=== PATIENT | male | born 1935 | race Caucasian/White ===

== ENCOUNTER 2017-11-25 19:59 | Inpatient (IN) | payer MEDICARE ==
[~2017-11-25] VITALS: Ht 154.7 cm; Wt 91.3 kg
[2017-11-25] MEDS ORDERED: ACETAMINOPHEN 325 MG TAB ONE (21:01)
[2017-11-25] MEDS ORDERED: ACETAMINOPHEN 325 MG TAB PO ONE (21:15)
[2017-11-25 21:22] LABS: BASOPHILS % 0.2 % (0.0-1.0); EOSINOPHILS # (AUTO) 0.1 (0.0-0.4); EOSINOPHILS % 0.6 % (0.0-6.0); HEMATOCRIT 40.4 % (38.2-49.6); HEMOGLOBIN 13.3 g/dL (14.0-18.0); LYMPHOCYTES # (AUTO) 0.5 (1.0-3.2); LYMPHOCYTES % 3.8 % (18.0-39.1); MEAN CORPUSCULAR HEMOGLOBIN 30.7 pg (28-32); MEAN CORPUSCULAR HGB CONC 32.9 g/dL (31-35); MEAN CORPUSCULAR VOLUME 93.3 fL (81-99); MONOCYTES # (AUTO) 0.5 (0.2-0.8); MONOCYTES % 3.1 % (4.4-11.3); NEUTROPHILS # (AUTO) 13.2 (2.1-6.9); NEUTROPHILS % 91.5 % (38.7-80.0); PLATELET COUNT 149 x10e3/uL (140-360); RED BLOOD COUNT 4.33 x10e6/uL (4.3-5.7); RED CELL DISTRIBUTION WIDTH 12.9 % (11.7-14.4)
[2017-11-25 21:33] LABS: ALBUMIN 3.7 g/dL (3.5-5.0); ALBUMIN/GLOBULIN RATIO 1.2 (0.8-2.0); ANION GAP 13.3 mmol/L (8-16); CALCIUM 10.5 mg/dL (8.4-10.2); CREATININE, SERUM 1.56 mg/dL (0.72-1.25); POTASSIUM 4.3 mmol/L (3.5-5.1)
--- NOTE | 2017-11-25 21:52 | Diagnostic Imaging Report ---
CHEST 2 VIEWS, Technique: CHEST 2 VIEWS Comparison: None Clinical history: Cough, fever DISCUSSION: Suboptimal positioning limits evaluation Heart/mediastinum: Borderline cardiomegaly status post sternotomy. Lungs: Elevated left hemidiaphragm. Mild bibasilar atelectasis or scarring. Pleural spaces: No effusion or pneumothorax. IMPRESSION: No acute abnormality Signed by: Dr Leona Mon MD on 11/25/2017 9:49 PM
[2017-11-26] MEDS ORDERED: IPRATROPIUM BROMIDE 0.02% 2.5 ML NEB NEB ONE (00:15)
[2017-11-26] MEDS ORDERED: LACTATED RINGER'S 1,000 ML IV ONE ×4 (00:15→12:00)
[2017-11-26] MEDS ORDERED: ALBUTEROL SULF 0.083% NEB SOLN 3 ML NEB NEB STA (00:15)
[2017-11-26 00:16] LABS: EOSINOPHILS % (MANUAL) 2 % (0-7); LYMPHOCYTES % (MANUAL) 3 % (19-48); MONOCYTES % (MANUAL) 3 % (3.4-9.0); NEUTROPHILS % (MANUAL) 92 % (40-74)
[2017-11-26 00:17] LABS: PLATELET ESTIMATE ADEQUATE
[2017-11-26 00:18] LABS: PLATELET MORPHOLOGY COMMENT NORMAL; POLYCHROMASIA FEW
[2017-11-26 00:31] LABS: BILIRUBIN,URINE NEGATIVE (NEGATIVE); CLARITY,URINE CLEAR (CLEAR); COLOR,URINE YELLOW (YELLOW); KETONES,URINE NEGATIVE (NEGATIVE); LEUKOCYTE ESTERASE ,URINE NEGATIVE (NEGATIVE); NITRITE,URINE NEGATIVE (NEGATIVE); PROTEIN,URINE DIPSTICK NEGATIVE (NEGATIVE); URINE UROBILINOGEN 0.2 mg/dL (0.2 - 1)
[2017-11-26 00:48] LABS: BACTERIA,URINE RARE /HPF; RBC,URINE 0-5 /HPF (0-5); WBC,URINE (MAN) 0-5 /HPF (0-5)
[2017-11-26 00:58] LABS: INR 0.98; PROTHROMBIN TIME 13.5 seconds (11.9-14.5)
[2017-11-26 01:04] LABS: MAGNESIUM 1.7 MG/DL (1.3-2.1)
[2017-11-26 01:10] LABS: CREATINE KINASE MB 1.6 ng/mL (0.00-5.00); TROPONIN I 0.062 ng/mL (0-0.300)
[2017-11-26 01:16] LABS: B-TYPE NATRIURETIC PEPTIDE2 47.2 pg/mL (0-100)
[2017-11-26] MEDS: AZITHROMYCIN 500MG/NS 250 ML 250 ML IV SCH ×2 (01:35→08:52)
[2017-11-26] MEDS: CEFTRIAXONE SOD 1 GM VIAL IV SCH ×2 (01:35→12:48)
[2017-11-26] MEDS ORDERED: VANCOMYCIN 1GM/NS 250 ML 250 ML IV STA (01:47)
[2017-11-26] MEDS ORDERED: ONDANSETRON HCL INJ 2 MG/ML VIAL IV PRN (02:00)
[2017-11-26] MEDS ORDERED: ASPIR 8181 MG PO (02:06)
[2017-11-26] MEDS ORDERED: CLOPIDOGREL75 MG PO (02:06)
[2017-11-26] MEDS ORDERED: HUMALOG100 UNIT/1 SC (02:06)
[2017-11-26] MEDS ORDERED: LEVOTHYROXINE50 MCG PO (02:06)
[2017-11-26] MEDS ORDERED: LANTUS 3ML100 UNITS/ SC (02:06)
[2017-11-26] MEDS ORDERED: DEXTROSE 50% SYRINGE 50 ML IV PRN (02:15)
[2017-11-26 03:01] VITALS: BP 113/57
[2017-11-26] MEDS: ACETAMINOPHEN 325 MG TAB PO PRN ×4 (03:38→23:05)
[2017-11-26 03:51] VITALS: BP 113/57
[2017-11-26] MEDS: INSULIN REGULAR, HUMAN 100 UNIT/1 ML 3ML VIAL SQ SCH ×4 (07:30→21:00)
[2017-11-26 07:41] VITALS: BP 107/60
[2017-11-26] MEDS: OSELTAMIVIR PHOSPHATE 75 MG CAP PO SCH ×2 (08:26→16:28)
[2017-11-26 11:28] VITALS: BP 87/52
[2017-11-26 11:32] LABS: CREATINE KINASE MB 2.4 ng/mL (0.00-5.00); TROPONIN I 0.275 ng/mL (0-0.300)
[2017-11-26] MEDS ORDERED: BREO INHALER (14:52)
[2017-11-26 15:48] VITALS: BP 149/72
[2017-11-26] MEDS ORDERED: INSULIN DETEMIR 100 UNIT/ML PEN SQ SCH (17:15)
[2017-11-26] MEDS ORDERED: FAMOTIDINE 20 MG TAB PO SCH (17:30)
[2017-11-26] MEDS: GUAIFENESIN 600MG/DEXTROMETHORPHAN 30MG TABSR PO SCH ×2 (18:04→23:05)
[2017-11-26] MEDS: ENOXAPARIN SOD INJ 40 MG/0.4 ML SYR SC SCH (18:04)
[2017-11-26 18:54] LABS: CREATINE KINASE MB 2.4 ng/mL (0.00-5.00); TROPONIN I 0.728 ng/mL (0-0.300)
[2017-11-26 20:00] VITALS: BP 119/66
[2017-11-26] MEDS: INSULIN DETEMIR 100 UNIT/ML PEN SQ SCH (22:37)
[2017-11-27] VITALS (7 sets, daily range): BP systolic 116–165; BP diastolic 56–75
[2017-11-27] MEDS: CEFTRIAXONE SOD 1 GM VIAL IV SCH ×2 (00:20→13:15)
[2017-11-27] MEDS: GUAIFENESIN 600MG/DEXTROMETHORPHAN 30MG TABSR PO SCH ×3 (06:10→17:24)
[2017-11-27] MEDS: LEVOTHYROXINE SODIUM 75 MCG TAB PO SCH (06:10)
[2017-11-27] MEDS: ALBUTEROL/IPRATROPIUM 3 ML NEB NEB SCH ×5 (07:00→23:10)
[2017-11-27 07:03] LABS: BASOPHILS % 0.2 % (0.0-1.0); EOSINOPHILS # (AUTO) 0.3 (0.0-0.4); EOSINOPHILS % 1.6 % (0.0-6.0); HEMATOCRIT 35.2 % (38.2-49.6); HEMOGLOBIN 11.5 g/dL (14.0-18.0); LYMPHOCYTES # (AUTO) 1.5 (1.0-3.2); LYMPHOCYTES % 9.3 % (18.0-39.1); MEAN CORPUSCULAR HEMOGLOBIN 31.1 pg (28-32); MEAN CORPUSCULAR HGB CONC 32.7 g/dL (31-35); MEAN CORPUSCULAR VOLUME 95.1 fL (81-99); MONOCYTES # (AUTO) 0.7 (0.2-0.8); MONOCYTES % 4.7 % (4.4-11.3); NEUTROPHILS # (AUTO) 13.2 (2.1-6.9); NEUTROPHILS % 83.1 % (38.7-80.0); PLATELET COUNT 131 x10e3/uL (140-360)
[2017-11-27 07:21] LABS: ALBUMIN 2.5 g/dL (3.5-5.0); ALBUMIN/GLOBULIN RATIO 0.9 (0.8-2.0); ANION GAP 6.9 mmol/L (8-16); CALCIUM 10.2 mg/dL (8.4-10.2); CHOL/HDL RATIO 3.1 (3.9-4.7); CREATININE, SERUM 1.22 mg/dL (0.72-1.25); POTASSIUM 3.9 mmol/L (3.5-5.1)
[2017-11-27] MEDS: INSULIN REGULAR, HUMAN 100 UNIT/1 ML 3ML VIAL SQ SCH ×4 (07:30→21:00)
[2017-11-27] MEDS: FAMOTIDINE 20 MG TAB PO SCH ×2 (08:30→16:24)
[2017-11-27] MEDS: ASPIRIN 81 MG CHEW TAB PO SCH (09:00)
[2017-11-27] MEDS: CLOPIDOGREL BISULFATE 75 MG TAB PO SCH (09:00)
[2017-11-27] MEDS: INSULIN DETEMIR 100 UNIT/ML PEN SQ SCH ×2 (09:00→21:00)
[2017-11-27] MEDS: OSELTAMIVIR PHOSPHATE 75 MG CAP PO SCH ×2 (09:00→17:00)
[2017-11-27] MEDS: AZITHROMYCIN 500MG/NS 250 ML 250 ML IV SCH (09:00)
--- NOTE | 2017-11-27 16:10 | History and Physical ---
PCP: Not a local doctor. CHIEF COMPLAINT: Fever and bronchitis. HISTORY OF PRESENT ILLNESS: Mr. Segura is an 82-year-old gentleman who presents with fever and chills with a temp as high as 102 at home times 2 days with a productive cough, shortness of breath, and wheezing. The patient does have a history of COPD, uses a nebulizer at home, quit smoking in the . REVIEW OF SYSTEMS: He has had subjective fever and chills. He denies weight loss. He denies sinus congestion, has had some sore throat. He denies chest pain or palpitations. He has had shortness of breath, wheezing, and a productive cough. He denies abdominal pain, nausea, vomiting, or melena. He denies dysuria or flank pain. He denies rash or pruritus. He denies joint pain or swelling. He denies bleeding or bruising. He denies headache, vertigo, or loss of consciousness. He denies depression, agitation, homicidal or suicidal ideation. PAST MEDICAL HISTORY: Significant for longstanding hypertension, type 2 diabetes, coronary artery disease, congestive heart failure, and COPD. He uses a nebulizer at home with albuterol and ipratropium. REGULAR MEDICATIONS 1. Lantus insulin 50 units at bedtime and sliding-scale insulin 3 times a day with meals. 2. Breo inhaler daily. 3. Aspirin 81 mg daily. 4. Plavix 75 mg daily. 5. Levothyroxine 50 mcg daily. He had a coronary artery bypass surgery in 2008. That is his only surgery. He quit smoking in 1979. DRUG ALLERGIES: NONE KNOWN. FAMILY HISTORY: Significant for hypertension and diabetes. SOCIAL HISTORY: The patient is . [place] is his primary language. He does not smoke, drink, or use illegal drugs, and he is generally independently functioning. PHYSICAL EXAM PSYCHIATRIC: He is alert and oriented times 3 with normal mood and affect. CONSTITUTIONAL: He has a normal body habitus. He is in no acute distress. VITAL SIGNS: Blood pressure currently 149/72, 107/60 on admission. His heart rate is 68 and regular. Respiratory rate 18. O2 sat 92% on 2 L nasal cannula. Temperature 99.8 currently. His temperature on admission was 101.9. HEENT: Head is atraumatic. His eyes are anicteric with clear conjunctivae. Ears and nares without erythema or discharge. Oropharynx is clear. NECK: Supple. No mass or thyromegaly. LYMPHATIC SYSTEM: He has no palpable cervical, axillary, or inguinal adenopathy. CARDIOVASCULAR: His heart has a regular rate and rhythm without murmur or extra sounds. He has no carotid bruit. No peripheral edema. Weak dorsal pedal pulses. RESPIRATORY: The patient has somewhat diminished breath sounds. He has inspiratory rhonchi, expiratory wheezing, and a productive cough and some mild shortness of breath. GASTROINTESTINAL: Abdomen is soft without organomegaly, masses, or tenderness. He has normal bowel sounds present. CUTANEOUS: His skin is warm and dry to touch. No rash or skin breakdown. MUSCULOSKELETAL: His joints are in normal alignment without erythema or swelling. He has no calf tenderness. NEUROLOGIC: Nonfocal with intact cranial nerves and no motor or sensory deficits. DIAGNOSTIC STUDIES: Chest x-ray shows no acute disease. His UA is clear. His flu screen was negative. Troponin 0.062, 0.275. His BNP 47.2, lactic acid 8.5. Magnesium is 1.7. Calcium 10.5. His electrolytes are normal. CO2 is 25. Creatinine 1.56. BUN 20 for a GFR of 43. Do not know what his baseline is. His glucose is 159. In view of the elevated calcium, the patient is most likely volume depleted at this time. His transaminases, bilirubin, alkaline phosphatase are normal. His CBC shows a white count of 14.3 which is elevated, 92% neutrophils, 3% lymphocytes, 3% monocytes, 2% eos. Hemoglobin 13.3, hematocrit 40.4, platelet count 149,000. Coags are normal. IMPRESSIONS 1. Severe sepsis. The patient meets criteria with elevated temperature, elevated white count, acute kidney injury, and bronchitis as the source. 2. Bronchitis/flu/acute exacerbation of chronic obstructive pulmonary disease. The patient will be started on oxygen with aggressive nebulizer treatments, intravenous Zithromax and Rocephin, p.o. Tamiflu and p.o. Mucinex. 3. Hypertension with coronary artery disease and congestive heart failure. Will continue the patient on aspirin, Plavix, and monitor his blood pressure. 4. Acute kidney injury. The patient has received intravenous fluids overnight. We will recheck his renal function and follow until we assess what his baseline is. 5. Type 2 diabetes. Will continue his Levemir and sliding scale. 6. For prophylaxis, the patient will be on Lovenox for deep venous thrombosis prophylaxis and Pepcid for gastrointestinal prophylaxis. Job#: [id number] CF
[2017-11-27] MEDS: LISINOPRIL 10 MG TAB PO SCH (16:20)
[2017-11-27] MEDS: ENOXAPARIN SOD INJ 40 MG/0.4 ML SYR SC SCH (17:00)
[2017-11-28] VITALS: BP 144/68
[2017-11-28] MEDS: CEFTRIAXONE SOD 1 GM VIAL IV SCH ×2 (01:10→13:15)
[2017-11-28] MEDS: ALBUTEROL/IPRATROPIUM 3 ML NEB NEB SCH ×4 (03:21→19:10)
[2017-11-28 04:00] VITALS: BP 155/73
[2017-11-28] MEDS: LEVOTHYROXINE SODIUM 75 MCG TAB PO SCH (06:00)
[2017-11-28] MEDS: GUAIFENESIN 600MG/DEXTROMETHORPHAN 30MG TABSR PO SCH ×4 (06:00→17:47)
[2017-11-28 07:19] LABS: BASOPHILS % 0.3 % (0.0-1.0); EOSINOPHILS # (AUTO) 0.3 (0.0-0.4); EOSINOPHILS % 2.9 % (0.0-6.0); HEMATOCRIT 32.6 % (38.2-49.6); HEMOGLOBIN 10.7 g/dL (14.0-18.0); LYMPHOCYTES # (AUTO) 0.9 (1.0-3.2); LYMPHOCYTES % 8.9 % (18.0-39.1); MEAN CORPUSCULAR HEMOGLOBIN 30.9 pg (28-32); MEAN CORPUSCULAR HGB CONC 32.8 g/dL (31-35); MEAN CORPUSCULAR VOLUME 94.2 fL (81-99); MONOCYTES # (AUTO) 0.5 (0.2-0.8); MONOCYTES % 4.8 % (4.4-11.3); NEUTROPHILS # (AUTO) 8.3 (2.1-6.9); NEUTROPHILS % 82.4 % (38.7-80.0); PLATELET COUNT 144 x10e3/uL (140-360); RED BLOOD COUNT 3.46 x10e6/uL (4.3-5.7); RED CELL DISTRIBUTION WIDTH 12.9 % (11.7-14.4)
[2017-11-28] MEDS: INSULIN REGULAR, HUMAN 100 UNIT/1 ML 3ML VIAL SQ SCH ×4 (07:30→21:00)
[2017-11-28 07:43] LABS: ANION GAP 9.9 mmol/L (8-16); CALCIUM 10.2 mg/dL (8.4-10.2); CREATININE, SERUM 1.47 mg/dL (0.72-1.25); POTASSIUM 3.9 mmol/L (3.5-5.1)
[2017-11-28 08:00] VITALS: BP 155/77
[2017-11-28] MEDS: FAMOTIDINE 20 MG TAB PO SCH ×2 (08:00→16:30)
[2017-11-28] MEDS: LISINOPRIL 10 MG TAB PO SCH (08:30)
[2017-11-28] MEDS: CLOPIDOGREL BISULFATE 75 MG TAB PO SCH (08:30)
[2017-11-28] MEDS: AZITHROMYCIN 500MG/NS 250 ML 250 ML IV SCH (08:30)
[2017-11-28] MEDS: OSELTAMIVIR PHOSPHATE 75 MG CAP PO SCH ×2 (08:30→17:00)
[2017-11-28] MEDS: ASPIRIN 81 MG CHEW TAB PO SCH (08:30)
[2017-11-28] MEDS: INSULIN DETEMIR 100 UNIT/ML PEN SQ SCH ×2 (09:00→21:00)
[2017-11-28] MEDS ORDERED: AMLODIPINE BESYLATE 5 MG TAB PO SCH (09:00)
[2017-11-28] MEDS: SODIUM CHLORIDE 0.9% 1000ML 1,000 ML IV SCH ×2 (11:30→22:06)
[2017-11-28] MEDS: AMLODIPINE BESYLATE 5 MG TAB PO SCH (12:41)
[2017-11-28 16:03] VITALS: BP 130/64
[2017-11-28] MEDS: ENOXAPARIN SOD INJ 40 MG/0.4 ML SYR SC SCH (17:00)
[2017-11-28 20:00] VITALS: BP 149/74
[2017-11-29] VITALS: BP 157/87
[2017-11-29] MEDS: CEFTRIAXONE SOD 1 GM VIAL IV SCH ×2 (01:15→12:30)
[2017-11-29] MEDS: ALBUTEROL/IPRATROPIUM 3 ML NEB NEB SCH ×5 (01:25→20:00)
[2017-11-29 04:00] VITALS: BP 155/71
[2017-11-29] MEDS: GUAIFENESIN 600MG/DEXTROMETHORPHAN 30MG TABSR PO SCH ×5 (05:39→23:38)
[2017-11-29] MEDS: LEVOTHYROXINE SODIUM 75 MCG TAB PO SCH (05:39)
[2017-11-29 07:19] LABS: BASOPHILS % 0.5 % (0.0-1.0); EOSINOPHILS # (AUTO) 0.7 (0.0-0.4); HEMATOCRIT 33.4 % (38.2-49.6); HEMOGLOBIN 10.9 g/dL (14.0-18.0); LYMPHOCYTES # (AUTO) 1.1 (1.0-3.2); LYMPHOCYTES % 14.2 % (18.0-39.1); MEAN CORPUSCULAR HEMOGLOBIN 30.9 pg (28-32); MEAN CORPUSCULAR HGB CONC 32.6 g/dL (31-35); MEAN CORPUSCULAR VOLUME 94.6 fL (81-99); MONOCYTES # (AUTO) 0.5 (0.2-0.8); MONOCYTES % 6.8 % (4.4-11.3); NEUTROPHILS # (AUTO) 5.4 (2.1-6.9); NEUTROPHILS % 68.7 % (38.7-80.0); PLATELET COUNT 146 x10e3/uL (140-360); RED BLOOD COUNT 3.53 x10e6/uL (4.3-5.7); RED CELL DISTRIBUTION WIDTH 12.8 % (11.7-14.4)
[2017-11-29 07:52] LABS: CALCIUM 10.1 mg/dL (8.4-10.2); CREATININE, SERUM 1.3 mg/dL (0.72-1.25)
[2017-11-29 07:57] VITALS: BP 149/75
[2017-11-29] MEDS: FAMOTIDINE 20 MG TAB PO SCH ×2 (08:27→16:30)
[2017-11-29] MEDS: ASPIRIN 81 MG CHEW TAB PO SCH (08:27)
[2017-11-29] MEDS: OSELTAMIVIR PHOSPHATE 75 MG CAP PO SCH ×2 (08:27→17:01)
[2017-11-29] MEDS: AZITHROMYCIN 500MG/NS 250 ML 250 ML IV SCH (08:27)
[2017-11-29] MEDS: AMLODIPINE BESYLATE 5 MG TAB PO SCH (08:27)
[2017-11-29] MEDS: ACETAMINOPHEN 325 MG TAB PO PRN (08:27)
[2017-11-29] MEDS: CLOPIDOGREL BISULFATE 75 MG TAB PO SCH (08:27)
[2017-11-29] MEDS: INSULIN DETEMIR 100 UNIT/ML PEN SQ SCH ×3 (08:29→21:18)
[2017-11-29] MEDS: INSULIN REGULAR, HUMAN 100 UNIT/1 ML 3ML VIAL SQ SCH ×4 (08:29→21:17)
[2017-11-29] MEDS ORDERED: LISINOPRIL 10 MG TAB PO SCH (09:00)
[2017-11-29 11:22] VITALS: BP 126/71
--- NOTE | 2017-11-29 15:52 | Consultation ---
DATE OF CONSULTATION: REASON FOR CONSULTATION: Pneumonia, recommendations for antibiotics. HISTORY OF PRESENT ILLNESS: This patient is a very pleasant 82-year-old who has history of COPD. He comes in with couple of days feeling feverish, sick in general, some cough. The patient was sick for 2-3 days. He used his nebulizer. He did not develop any improvement so he came to the hospital. The patient was admitted and started on antibiotics. Infectious disease was consulted. PAST MEDICAL HISTORY: Hypertension, diabetes mellitus type 2, coronary disease, congestive heart failure, COPD on home nebulizer. PAST SURGICAL HISTORY: CABG in 2008. ALLERGIES: NO KNOWN DRUG ALLERGIES. SOCIAL HISTORY: He used to smoke, but he quit in 1979. MEDICATION: He is on insulin, aspirin, Plavix and levothyroxine. REVIEW OF SYSTEMS: Besides what is mentioned above. HEENT: There is no headache, visual change or hearing change. GI: There is no nausea, no vomiting and no diarrhea. CARDIAC: There is no arrhythmia. EXTREMITIES: No erythema or edema. LABORATORY DATA: When he first came his white count was 14.3 and came down to 7.79. Hemoglobin of 13, it came down to 10. Sodium 138, potassium 4.0. Influenza A and B were negative. His blood culture showing Streptococcus viridans 2 sets. PHYSICAL EXAMINATION: GENERAL: He is currently alert and oriented and does not seem to be in any acute distress. VITAL SIGNS: He is running fever, 100.3. He had T max at 101.9. HEENT: Not icteric. NECK: Supple. CHEST: Clear bilaterally. COR: S1 and S2 but there is a 2/6 systolic ejection murmur. ABDOMEN: Soft. Positive bowel sounds. No tenderness. EXTREMITIES: No edema. IMPRESSION AND PLAN 1. Sepsis with Streptococcus viridans, concerned about endocarditis. I agree with Rocephin 1 gram q.12 h. Recheck blood cultures and obtain echocardiogram. 2. Chronic obstructive pulmonary disease. 3. Atrial fibrillation. 4. Will follow with you. Thank you for asking me to see this patient. Further recommendations depending on the above. Will also get a sed rate and C-reactive protein. Job#: [id number]
[2017-11-29] MEDS: ENOXAPARIN SOD INJ 40 MG/0.4 ML SYR SC SCH (17:01)
[2017-11-29 19:25] VITALS: BP 187/78
[2017-11-30] VITALS (7 sets, daily range): BP systolic 137–155; BP diastolic 69–82
[2017-11-30] MEDS: CEFTRIAXONE SOD 1 GM VIAL IV SCH ×2 (01:45→13:04)
[2017-11-30] MEDS: ALBUTEROL/IPRATROPIUM 3 ML NEB NEB SCH ×5 (01:50→19:20)
[2017-11-30] MEDS: ACETAMINOPHEN 325 MG TAB PO PRN (04:36)
[2017-11-30] MEDS: LEVOTHYROXINE SODIUM 75 MCG TAB PO SCH (05:32)
[2017-11-30] MEDS: GUAIFENESIN 600MG/DEXTROMETHORPHAN 30MG TABSR PO SCH ×3 (05:32→17:38)
[2017-11-30 07:15] LABS: BASOPHILS # (AUTO) 0.1 (0.0-0.1); BASOPHILS % 0.7 % (0.0-1.0); EOSINOPHILS # (AUTO) 0.9 (0.0-0.4); EOSINOPHILS % 10.8 % (0.0-6.0); HEMATOCRIT 34.2 % (38.2-49.6); HEMOGLOBIN 11.3 g/dL (14.0-18.0); LYMPHOCYTES % 11.7 % (18.0-39.1); MEAN CORPUSCULAR VOLUME 93.7 fL (81-99); MONOCYTES # (AUTO) 0.6 (0.2-0.8); MONOCYTES % 6.7 % (4.4-11.3); NEUTROPHILS % 69.2 % (38.7-80.0); PLATELET COUNT 175 x10e3/uL (140-360); RED BLOOD COUNT 3.65 x10e6/uL (4.3-5.7); RED CELL DISTRIBUTION WIDTH 12.6 % (11.7-14.4)
[2017-11-30] MEDS: INSULIN REGULAR, HUMAN 100 UNIT/1 ML 3ML VIAL SQ SCH ×4 (07:30→22:18)
[2017-11-30 07:42] LABS: ANION GAP 9.5 mmol/L (8-16); CALCIUM 10.4 mg/dL (8.4-10.2); CREATININE, SERUM 1.2 mg/dL (0.72-1.25); POTASSIUM 4.5 mmol/L (3.5-5.1)
[2017-11-30] MEDS: FAMOTIDINE 20 MG TAB PO SCH ×2 (09:00→16:30)
[2017-11-30] MEDS: INSULIN DETEMIR 100 UNIT/ML PEN SQ SCH ×2 (09:00→22:10)
[2017-11-30] MEDS: OSELTAMIVIR PHOSPHATE 75 MG CAP PO SCH ×2 (09:32→17:38)
[2017-11-30] MEDS: ASPIRIN 81 MG CHEW TAB PO SCH (09:32)
[2017-11-30] MEDS: AMLODIPINE BESYLATE 5 MG TAB PO SCH (09:32)
[2017-11-30] MEDS: CLOPIDOGREL BISULFATE 75 MG TAB PO SCH (09:32)
[2017-11-30] MEDS ORDERED: FUROSEMIDE INJ 10 MG/ML 2 ML VIAL IV NR (18:00)
[2017-11-30] MEDS ORDERED: POTASSIUM CHLORIDE 10 MEQ TABCR PO NR (18:00)
[2017-12-01] MEDS: CEFTRIAXONE SOD 1 GM VIAL IV SCH ×2 (00:47→13:15)
[2017-12-01] MEDS: GUAIFENESIN 600MG/DEXTROMETHORPHAN 30MG TABSR PO SCH ×4 (00:47→21:23)
[2017-12-01] MEDS: ALBUTEROL/IPRATROPIUM 3 ML NEB NEB SCH ×6 (01:50→23:00)
[2017-12-01 04:00] VITALS: BP_SYST 130; BP_SYST 178; BP_DIAS 60; BP_DIAS 83
[2017-12-01] MEDS: LEVOTHYROXINE SODIUM 75 MCG TAB PO SCH (06:42)
[2017-12-01] MEDS: HYDRALAZINE HCL 20 MG/ML VIAL IV PRN (06:42)
[2017-12-01] MEDS: INSULIN REGULAR, HUMAN 100 UNIT/1 ML 3ML VIAL SQ SCH ×4 (07:30→21:38)
[2017-12-01 07:41] VITALS: BP 151/76
[2017-12-01] MEDS: FAMOTIDINE 20 MG TAB PO SCH ×2 (07:49→16:30)
[2017-12-01] MEDS: AMLODIPINE BESYLATE 5 MG TAB PO SCH (07:50)
[2017-12-01 07:51] LABS: BASOPHILS # (AUTO) 0.1 (0.0-0.1); BASOPHILS % 0.6 % (0.0-1.0); EOSINOPHILS # (AUTO) 0.9 (0.0-0.4); EOSINOPHILS % 9.7 % (0.0-6.0); HEMATOCRIT 35.8 % (38.2-49.6); HEMOGLOBIN 11.7 g/dL (14.0-18.0); LYMPHOCYTES # (AUTO) 1.3 (1.0-3.2); LYMPHOCYTES % 13.6 % (18.0-39.1); MEAN CORPUSCULAR HEMOGLOBIN 30.4 pg (28-32); MEAN CORPUSCULAR HGB CONC 32.7 g/dL (31-35); MONOCYTES # (AUTO) 0.7 (0.2-0.8); MONOCYTES % 6.8 % (4.4-11.3); NEUTROPHILS # (AUTO) 6.5 (2.1-6.9); NEUTROPHILS % 68.3 % (38.7-80.0); PLATELET COUNT 197 x10e3/uL (140-360); RED BLOOD COUNT 3.85 x10e6/uL (4.3-5.7); RED CELL DISTRIBUTION WIDTH 12.6 % (11.7-14.4)
[2017-12-01 08:09] LABS: CALCIUM 10.6 mg/dL (8.4-10.2); CREATININE, SERUM 1.2 mg/dL (0.72-1.25)
[2017-12-01 08:22] LABS: ERYTHROCYTE SEDIMENTATION RATE 75 mm/hr (0-13)
[2017-12-01] MEDS: ASPIRIN 81 MG CHEW TAB PO SCH (09:22)
[2017-12-01] MEDS: CLOPIDOGREL BISULFATE 75 MG TAB PO SCH (09:22)
[2017-12-01] MEDS: OSELTAMIVIR PHOSPHATE 75 MG CAP PO SCH ×2 (09:22→17:42)
[2017-12-01 12:34] VITALS: BP 103/58
[2017-12-01] MEDS ORDERED: SODIUM CHLORIDE 0.9% 1000ML 1,000 ML IV SCH (15:15)
[2017-12-01 20:00] VITALS: BP_SYST 150; BP_SYST 162; BP_DIAS 67
--- NOTE | 2017-12-01 20:03 | Diagnostic Imaging Report ---
EXAMINATION: CHEST XRAY LINE PLACEMENT INDICATION: \S\Right upper arm picc line placement verification \S.br\ COMPARISON: 11/25/2017 FINDINGS: AP view TUBES and LINES: Right PICC in place with tip overlying mid SVC. LUNGS: Lungs are well inflated. Unchanged elevated left hemidiaphragm with adjacent subsegmental atelectasis. Mild central vascular congestion. PLEURA: No pleural effusion or pneumothorax. HEART AND MEDIASTINUM: The cardiac silhouette is mildly enlarged. Unchanged median sternotomy wires. BONES AND SOFT TISSUES: No acute osseous lesion. Soft tissues are unremarkable. UPPER ABDOMEN: No free air under the diaphragm. IMPRESSION: Status post right PICC placement with tip overlying mid SVC. No visible pneumothorax. Signed by: Dr. Yinka Connolly MD on 12/01/2017 7:59 PM
[2017-12-01] MEDS: INSULIN DETEMIR 100 UNIT/ML PEN SQ SCH (21:38)
[2017-12-02] VITALS: BP 100/61
[2017-12-02] MEDS: CEFTRIAXONE SOD 1 GM VIAL IV SCH ×2 (02:10→13:15)
[2017-12-02] MEDS: ALBUTEROL/IPRATROPIUM 3 ML NEB NEB SCH ×6 (03:35→23:00)
[2017-12-02 04:00] VITALS: BP 152/74
[2017-12-02] MEDS: LEVOTHYROXINE SODIUM 75 MCG TAB PO SCH (06:04)
[2017-12-02] MEDS: GUAIFENESIN 600MG/DEXTROMETHORPHAN 30MG TABSR PO SCH ×4 (06:04→17:39)
[2017-12-02] MEDS: INSULIN REGULAR, HUMAN 100 UNIT/1 ML 3ML VIAL SQ SCH ×4 (07:30→21:53)
[2017-12-02 08:00] VITALS: BP 150/82
[2017-12-02 08:12] LABS: BASOPHILS # (AUTO) 0.1 (0.0-0.1); BASOPHILS % 0.6 % (0.0-1.0); EOSINOPHILS # (AUTO) 1.1 (0.0-0.4); EOSINOPHILS % 9.6 % (0.0-6.0); HEMATOCRIT 34.2 % (38.2-49.6); LYMPHOCYTES # (AUTO) 1.4 (1.0-3.2); LYMPHOCYTES % 12.4 % (18.0-39.1); MEAN CORPUSCULAR HEMOGLOBIN 30.4 pg (28-32); MEAN CORPUSCULAR HGB CONC 32.2 g/dL (31-35); MEAN CORPUSCULAR VOLUME 94.5 fL (81-99); MONOCYTES # (AUTO) 0.6 (0.2-0.8); MONOCYTES % 5.6 % (4.4-11.3); NEUTROPHILS # (AUTO) 7.8 (2.1-6.9); NEUTROPHILS % 70.6 % (38.7-80.0); PLATELET COUNT 212 x10e3/uL (140-360); RED BLOOD COUNT 3.62 x10e6/uL (4.3-5.7); RED CELL DISTRIBUTION WIDTH 12.6 % (11.7-14.4)
[2017-12-02 08:36] LABS: ANION GAP 10.3 mmol/L (8-16); CALCIUM 10.2 mg/dL (8.4-10.2); CREATININE, SERUM 1.28 mg/dL (0.72-1.25); POTASSIUM 4.3 mmol/L (3.5-5.1)
[2017-12-02] MEDS: FAMOTIDINE 20 MG TAB PO SCH ×2 (08:45→16:30)
[2017-12-02] MEDS: ASPIRIN 81 MG CHEW TAB PO SCH (09:42)
[2017-12-02] MEDS: OSELTAMIVIR PHOSPHATE 75 MG CAP PO SCH ×2 (09:42→17:38)
[2017-12-02] MEDS: CLOPIDOGREL BISULFATE 75 MG TAB PO SCH (09:42)
[2017-12-02] MEDS: AMLODIPINE BESYLATE 5 MG TAB PO SCH (09:42)
[2017-12-02 12:00] VITALS: BP 152/80
[2017-12-02] MEDS ORDERED: CEPACOL SORE THROAT LOZENGES PO PRN (13:15)
[2017-12-02 16:00] VITALS: BP 141/75
[2017-12-02 20:00] VITALS: BP 162/74
[2017-12-02] MEDS: INSULIN DETEMIR 100 UNIT/ML PEN SQ SCH (21:53)
[2017-12-02] MEDS: HYDRALAZINE HCL 20 MG/ML VIAL IV PRN (22:21)
[2017-12-03] VITALS (7 sets, daily range): BP systolic 95–156; BP diastolic 67–88
[2017-12-03] MEDS: GUAIFENESIN 600MG/DEXTROMETHORPHAN 30MG TABSR PO SCH ×5 (00:11→23:22)
[2017-12-03] MEDS: ALBUTEROL/IPRATROPIUM 3 ML NEB NEB SCH ×6 (02:13→23:00)
[2017-12-03] MEDS: CEFTRIAXONE SOD 1 GM VIAL IV SCH ×2 (02:19→13:01)
[2017-12-03] MEDS ORDERED: SIMETHICONE 80 MG CHEW PO PRN (03:15)
[2017-12-03] MEDS: LEVOTHYROXINE SODIUM 75 MCG TAB PO SCH (06:18)
[2017-12-03] MEDS: INSULIN REGULAR, HUMAN 100 UNIT/1 ML 3ML VIAL SQ SCH ×4 (07:30→21:30)
[2017-12-03] MEDS: FAMOTIDINE 20 MG TAB PO SCH ×2 (07:30→17:05)
[2017-12-03] MEDS: AMLODIPINE BESYLATE 5 MG TAB PO SCH (09:28)
[2017-12-03] MEDS: OSELTAMIVIR PHOSPHATE 75 MG CAP PO SCH ×2 (09:28→17:05)
[2017-12-03] MEDS: CLOPIDOGREL BISULFATE 75 MG TAB PO SCH (09:28)
[2017-12-03] MEDS: ASPIRIN 81 MG CHEW TAB PO SCH (09:28)
[2017-12-03 10:00] LABS: ANION GAP 10.3 mmol/L (8-16); CALCIUM 10.4 mg/dL (8.4-10.2); CREATININE, SERUM 1.16 mg/dL (0.72-1.25); POTASSIUM 4.3 mmol/L (3.5-5.1)
[2017-12-03 11:01] LABS: BASOPHILS # (AUTO) 0.1 (0.0-0.1); BASOPHILS % 0.9 % (0.0-1.0); EOSINOPHILS # (AUTO) 1.1 (0.0-0.4); EOSINOPHILS % 13.7 % (0.0-6.0); HEMATOCRIT 34.7 % (38.2-49.6); HEMOGLOBIN 11.2 g/dL (14.0-18.0); LYMPHOCYTES # (AUTO) 1.2 (1.0-3.2); LYMPHOCYTES % 15.1 % (18.0-39.1); MEAN CORPUSCULAR HEMOGLOBIN 30.5 pg (28-32); MEAN CORPUSCULAR HGB CONC 32.3 g/dL (31-35); MEAN CORPUSCULAR VOLUME 94.6 fL (81-99); MONOCYTES # (AUTO) 0.5 (0.2-0.8); MONOCYTES % 6.1 % (4.4-11.3); NEUTROPHILS # (AUTO) 5.1 (2.1-6.9); PLATELET COUNT 231 x10e3/uL (140-360); RED BLOOD COUNT 3.67 x10e6/uL (4.3-5.7); RED CELL DISTRIBUTION WIDTH 12.4 % (11.7-14.4)
--- NOTE | 2017-12-03 16:29 | Diagnostic Imaging Report ---
EXAMINATION: CHEST 2 VIEWS INDICATION: \S\f/u pna COMPARISON: Chest x-ray 12/01/2017. 11/25/2017. FINDINGS: PA and lateral views TUBES and LINES: Right PICC line with tip in mid SVC. Median sternotomy wires are intact. LUNGS: Lungs are well inflated. There are bibasilar atelectasis. There is no evidence of pneumonia or pulmonary edema. PLEURA: No pleural effusion or pneumothorax. HEART AND MEDIASTINUM: The cardiomediastinal silhouette is unremarkable. BONES AND SOFT TISSUES: No acute osseous lesion. Soft tissues are unremarkable. UPPER ABDOMEN: No free air under the diaphragm. IMPRESSION: Bibasilar atelectasis. No definite consolidative pneumonia. Signed by: Dr. Lopez Ch M.D. on 12/03/2017 4:26 PM
[2017-12-03] MEDS: INSULIN DETEMIR 100 UNIT/ML PEN SQ SCH (21:31)
[2017-12-04] VITALS: BP 129/75
[2017-12-04] MEDS: CEFTRIAXONE SOD 1 GM VIAL IV SCH ×2 (02:18→13:35)
[2017-12-04] MEDS: ALBUTEROL/IPRATROPIUM 3 ML NEB NEB SCH ×4 (02:20→15:00)
[2017-12-04 04:00] VITALS: BP 144/79
[2017-12-04] MEDS: GUAIFENESIN 600MG/DEXTROMETHORPHAN 30MG TABSR PO SCH ×2 (05:33→12:53)
[2017-12-04] MEDS: LEVOTHYROXINE SODIUM 75 MCG TAB PO SCH (05:33)
[2017-12-04] MEDS: INSULIN REGULAR, HUMAN 100 UNIT/1 ML 3ML VIAL SQ SCH ×2 (07:30→11:30)
[2017-12-04] MEDS: FAMOTIDINE 20 MG TAB PO SCH (07:54)
[2017-12-04 08:35] VITALS: BP 137/70
[2017-12-04] MEDS: AMLODIPINE BESYLATE 5 MG TAB PO SCH (09:48)
[2017-12-04] MEDS: OSELTAMIVIR PHOSPHATE 75 MG CAP PO SCH (09:48)
[2017-12-04] MEDS: ASPIRIN 81 MG CHEW TAB PO SCH (09:48)
[2017-12-04] MEDS: CLOPIDOGREL BISULFATE 75 MG TAB PO SCH (09:48)
--- NOTE | 2017-12-04 11:14 | Progress Note ---
DATE: PRIMARY CARE PHYSICIAN: Dr. Conner Wong. JUNIOR PROGRAMMER ANALYST: Dr. Figueroa. CHIEF COMPLAINT: Bronchitis, COPD, febrile illness. ALLERGIES: NO KNOWN DRUG ALLERGIES. DIET: ADA diet. MEDICATIONS: Please see MAR. SUBJECTIVE: No new issues or complaints. OBJECTIVE VITALS: Temperature 97.0, pulse 74, blood pressure 133/77, respirations 18, saturating 98%, weight 202, BMI 38. GENERAL: Patient is awake, alert, oriented times 3. Speech is clear. LUNGS: Decreased breath sounds in lower bases. Patient ambulatory with hallways, saturating 85% on room air. HEENT: Extraocular muscles are intact. Sclerae are anicteric. ABDOMEN: Soft. Bowel sounds present. Nontender and nondistended. CARDIOVASCULAR: Regular rate and rhythm. NECK: Supple. Trachea midline. EXTREMITIES: No calf tenderness. NEUROLOGIC: Nonfocal. LABS: Sodium 141, potassium 4.3, chloride 106, CO2 of 29, BUN 20, creatinine 1.16, glucose 102. White count 8.09, hemoglobin 11.2, hematocrit 34.7, and platelets 231. DIAGNOSES 1. Bronchitis and chronic obstructive pulmonary disease. I will continue with IV antibiotics and pulmonary toileting. Saturating 85% on room air. We will consult case management for possible home O2. 2. Hypertension with coronary artery disease and congestive heart failure. Will continue with Plavix and aspirin and Norvasc. 3. Acute kidney injury. Creatinine 1.16, which is better. We will continue to monitor. We will get a BMP in the morning. 4. Diabetes mellitus type 2. Will continue on insulin sliding scale. 5. Hyperkalemia. Will continue to monitor calcium. Dictated by: Mert Valencia NP Job#: [id number] SAK
[2017-12-04 11:46] VITALS: BP 142/78
[2017-12-04] MEDS ORDERED: LEVAQUIN500 MG PO (14:02)
[2017-12-04] MEDS ORDERED: NORVASC5 MG PO (14:05)
--- NOTE | 2017-12-05 12:03 | Discharge Summary ---
ADMITTING DIAGNOSES 1. Severe sepsis. 2. Bronchitis/flu/acute exacerbation of chronic obstructive pulmonary disease. 3. Hypertension. 4. Acute kidney injury. 5. Type 2 diabetes. DISCHARGE DIAGNOSES 1. Severe sepsis. 2. Bronchitis/flu/acute exacerbation of chronic obstructive pulmonary disease. 3. Hypertension. 4. Acute kidney injury. 5. Type 2 diabetes. 6. Ruled out flu. 7. Ruled out endocarditis. HISTORY: Patient has a history of hypertension, type 2 diabetes, CAD, CHF, COPD, uses a nebulizer at home with ipratropium and albuterol. HOSPITAL COURSE: An 82-year-old male presented with fever and chills, temp as high as 102 for about 2 days with a productive cough, shortness of breath, and wheezing. On admission, the patient was started on IV Zithromax and Rocephin, p.o. Tamiflu, and p.o Mucinex. Flu was ruled out, but still treated as due to the flu-like symptoms the patient was having. Blood culture was completed, which showed Streptococcus viridans. ID was consulted, who changed the antibiotics to Rocephin 1 gram q.12 and an echo was obtained to rule out endocarditis. EF showed about 50% EF with no valvular abnormality. Acute kidney injury was resolved with IV fluids at the time of discharge. Hypertension and type 2 diabetes were managed on home medicines. Patient says he took lisinopril at home that was discontinued once the patient needed high blood pressure medicine, he was started on amlodipine instead. Chest x-ray on admission showed no acute abnormality. Chest x-ray on 12/03/2017 showed atelectasis, no definite consolidative pneumonia. Repeat blood cultures were negative per ID. Sputum culture was also negative. Patient was supposed to go home on IV antibiotics for 2 weeks per ID, so a PICC line was placed. The patient's insurance was not approved to do antibiotics at the ID's office and home infusion companies were being denied by patient's insurance as well, so after exhausting those options, the patient had to be discontinued on p.o. Levaquin times 10 days per ID. He was also given a prescription for the Norvasc. He will resume his home medicines and follow up with primary care in about a week. DICTATED BY: ROLAND AGUIRRE NP YOLIE FLOYD MD Job#: [id number] PAT
== END 2017-12-04 15:05 | disposition home or self-care (01) | DRG 872 ==
LOC: ER 19:59 → MED/SURG3 11-26 02:17
PROVIDERS: ADMIT Internal Medicine; ATTEND Internal Medicine
PROC: 02HV33Z Insertion of Infusion Device into Superior Vena Cava, Percutaneous Approach (ICD-10-PCS; principal; 2017-12-01)
DX: A40.8 Other streptococcal sepsis (principal); N17.9 Acute kidney failure, unspecified; R65.20 Severe sepsis without septic shock; D69.6 Thrombocytopenia, unspecified; I13.0 Hypertensive heart and chronic kidney disease with heart failure and stage 1 through stage 4 chronic kidney disease, or unspecified chronic kidney disease; I50.9 Heart failure, unspecified; E83.52 Hypercalcemia; J44.0 Chronic obstructive pulmonary disease with (acute) lower respiratory infection; J44.1 Chronic obstructive pulmonary disease with (acute) exacerbation; J20.9 Acute bronchitis, unspecified; Z87.891 Personal history of nicotine dependence; I25.10 Atherosclerotic heart disease of native coronary artery without angina pectoris; E11.9 Type 2 diabetes mellitus without complications; I48.91 Unspecified atrial fibrillation; E87.5 Hyperkalemia; D64.9 Anemia, unspecified; N18.9 Chronic kidney disease, unspecified
CPT/HCPCS: 36415; 36569; 71010; 71020; 80048; 80053; 80061; 81001; 82550; 82553; 82948; 83605; 83735; 83880; 84443; 84484; 85025; 85610; 85651; 85730; 87040; 87070; 87071; 87205; 87400; 93306; 94640; 96372; 96376; 99284; J0360; J0456; J0696; J1650; J1940; J2405; J3370; J7030; J7120